=== PATIENT | female | born 1990 | race Caucasian/White ===

== ENCOUNTER → 2023-07-15 | Outpatient (CLI) | payer BC ==
[~2023-07-15] MED LIST: AUGMENTIN 875 M1 TAB PO; BIRTH CONTROL; MIRALAX POWDER17 G1 PO; MOTRIN800 MG PO; ROBITUSSIN-AC 160 ML PO; SINCALIDE 5 MCG VIAL IV SCH; SINCALIDE IV ONE; SKELAXIN800 MG PO; SODIUM CHLORIDE 0.9% IV ONE; SUDAFED60 MG PO; TOPAMAX50 MG PO; Technetium Tc 99M Mebrofenin 1 KIT KIT IV SCH
== END | disposition home or self-care (01) ==
LOC: NM 07-06 07:00
PROVIDERS: ATTEND Family Medicine
DX: R10.11 Right upper quadrant pain (principal); R10.84 Generalized abdominal pain

== ENCOUNTER → 2024-07-22 | Outpatient (CLI) | payer OTHER ==
[~2024-07-22] MED LIST changes: -SINCALIDE 5 MCG VIAL IV SCH; -SINCALIDE IV ONE; -SODIUM CHLORIDE 0.9% IV ONE; -Technetium Tc 99M Mebrofenin 1 KIT KIT IV SCH
== END | disposition home or self-care (01) ==
LOC: LAB 12:26
PROVIDERS: ATTEND Internal Medicine Critical Care Medicine
DX: R53.83 Other fatigue (principal)

== ENCOUNTER 2025-02-17 14:14 | Emergency (ER) | payer OTHER ==
[~2025-02-17] VITALS: Ht 165.1 cm; Wt 108.9 kg
[2025-02-17 15:16] LABS: BASO # 0.0 10*3/uL (0.0-0.1); BASO % 0.4 % (0.0-1.0); EOS # 0.2 10*3/uL (0.0-0.4); EOS % 4.4 % (1.0-4.0); MEAN CELL VOLUME 87.9 fl (81.0-99.0); MEAN CORPUSCULAR HGB 28.3 pg (27.0-31.0); MEAN PLATELET VOLUME 11.4 fl (9.6-12.3); MONO # 0.3 10*3/uL (0.1-1.0); MONO % 5.9 % (3.0-9.0); NEUT # 3.0 10*3/uL (2.3-7.9); NEUT % 64.9 % (47.0-73.0); NUCLEATED RED BLOOD CELL 0.0 % (0.0-0.0); NUCLEATED RED BLOOD CELL 0.0 10*3/uL (0.0-0.0); PLATELET COUNT AUTOMATED 241 10*3/uL (130-400); RED CELL DISTRI WIDTH 14.6 % (0-14.5)
[2025-02-17 15:49] LABS: BUN 10 mg/dl (9-23)
[2025-02-17] MEDS ORDERED: ZITHROMAX250 MG PO (16:04)
[2025-02-17] MEDS ORDERED: PREDNISONE50 MG PO (16:04)
[2025-02-17] MEDS ORDERED: predniSONE 20 MG TAB PO ONE (16:05)
[2025-02-17] MEDS ORDERED: AZITHROMYCIN 250 MG TAB PO ONE (16:05)
[2025-02-17] MEDS ORDERED: ALBUTEROL 8 GM INHALER INH ONE (16:10)
== END 2025-02-17 16:39 | disposition home or self-care (01) ==
LOC: ED 14:14
PROVIDERS: Nurse Practitioner Family
DX: J98.4 Other disorders of lung (principal); Z90.89 Acquired absence of other organs; Z88.1 Allergy status to other antibiotic agents